=== PATIENT | female | born 1960 | race Caucasian/White ===

== ENCOUNTER 2017-03-14 17:46 | Emergency (ER) | payer MEDICARE, OTHER ==
[2017-03-14] MEDS ORDERED: SODIUM CHLORIDE 0.9% 500 ML IV STA (18:32)
[2017-03-14] MEDS ORDERED: IPRATROPIUM-ALBUTEROL 3 ML NEB INHALATION STA (18:32)
[2017-03-14] MEDS ORDERED: methylPREDNISolone SOD SUCCI 125 MG/2 ML VIAL IV STA (18:32)
--- NOTE | 2017-03-14 18:37 | ED ---
SOB HPI - General Chief Complaint: Shortness of Breath Stated Complaint: mateo Time Seen by Provider: 03/14/17 18:21 Source: patient, RN notes reviewed, old records reviewed Mode of arrival: ambulatory Limitations: no limitations - History of Present Illness Initial Comments: 56-year-old female chief complaint of increased shortness of breath and increasing cough over the past week. She does have a sense of history of COPD. She denies any specific chest pain at this time. She reports every time she coughs she brings up with the white sputum. Patient denies any recent fever or chills. She reports that she has coughed to the point where she has vomited earlier today. She states that she has been smoking a pack a day for many years. She reports she continues to smoke despite coughing. Patient denies any abdominal pain, changes in urination or bowel movements. - Related Data Home Medications Medication Instructions Recorded Confirmed Albuterol Inhaler [Ventolin Hfa 2 puff INHALATION RT-QID PRN 03/14/17 03/14/17 Inhaler] Albuterol Nebulized [Ventolin 2.5 mg INHALATION RT-DAILY PRN 03/14/17 03/14/17 Nebulized] Beclomethasone Dipropionate [Qvar 1 puff INHALATION RT-BID 03/14/17 03/14/17 80 mcg] Dextromethorphan Hb/Doxylamine 10 ml PO Q6HR PRN 03/14/17 03/14/17 [Robitussin Nighttime Cough Dm] Ibuprofen [Motrin] 800 mg PO DAILY PRN 03/14/17 03/14/17 Previous Rx's Medication Instructions Recorded Benzonatate [Tessalon Perles] 100 mg PO TID PRN #12 capsule 03/14/17 Levofloxacin [Levaquin] 750 mg PO DAILY #7 tab 03/14/17 predniSONE 50 mg PO DAILY #7 tablet 03/14/17 Allergies Allergy/AdvReac Type Severity Reaction Status Date / Time codeine AdvReac Nausea & Verified 03/14/17 19:23 Vomiting Review of Systems ROS Statement: Those systems with pertinent positive or pertinent negative responses have been documented in the HPI. ROS Other: All systems not noted in ROS Statement are negative. Past Medical History Past Medical History: COPD Additional Past Medical History / Comment(s): recurrent bronchitis, emphysema History of Any Multi-Drug Resistant Organisms: None Reported Past Surgical History: Cholecystectomy, Orthopedic Surgery, Tubal Ligation Additional Past Surgical History / Comment(s): l ankle Past Psychological History: No Psychological Hx Reported Smoking Status: Heavy tobacco smoker Past Alcohol Use History: None Reported Past Drug Use History: None Reported General Exam - General Exam Comments Initial Comments: This is a 56-year-old female. Patient appears in mild discomfort. Limitations: no limitations General appearance: alert, in no apparent distress Head exam: Present: atraumatic, normocephalic, normal inspection Eye exam: Present: normal appearance, PERRL, EOMI. Absent: scleral icterus, conjunctival injection, periorbital swelling ENT exam: Present: normal exam, mucous membranes moist Neck exam: Present: normal inspection. Absent: tenderness, meningismus, lymphadenopathy Respiratory exam: Present: normal lung sounds bilaterally, wheezes (Wheezing). Absent: respiratory distress, rales, rhonchi, stridor Cardiovascular Exam: Present: regular rate, normal rhythm, normal heart sounds. Absent: systolic murmur, diastolic murmur, rubs, gallop, clicks GI/Abdominal exam: Present: soft, normal bowel sounds. Absent: distended, tenderness, guarding, rebound, rigid Extremities exam: Present: normal inspection, full ROM, normal capillary refill. Absent: tenderness, pedal edema, joint swelling, calf tenderness Back exam: Present: normal inspection Neurological exam: Present: alert, oriented X3, CN II-XII intact Psychiatric exam: Present: normal affect, normal mood Skin exam: Present: warm, dry, intact, normal color. Absent: rash Course Vital Signs 03/14/17 03/14/17 03/14/17 17:58 18:33 18:51 Temperature 99.2 F 98.9 F Pulse Rate 104 H 101 H 90 Respiratory 20 18 Rate Blood Pressure 135/65 152/71 O2 Sat by Pulse 94 L 94 L Oximetry 03/14/17 19:04 Temperature Pulse Rate 93 Respiratory Rate Blood Pressure O2 Sat by Pulse Oximetry Medical Decision Making - Medical Decision Making 56-year-old female chief complaint of increased shortness of breath and increasing cough over the past week. She does have a sense of history of COPD. She denies any specific chest pain at this time. She reports every time she coughs she brings up with the white sputum. Patient denies any recent fever or chills. Patient's chest x-ray was reviewed and negative for any acute process. She did have a bruit DuoNeb breathing treatment and is reporting some improvement. Patient received IV Solu-Medrol for acute COPD exacerbation. All lab work was reviewed and negative for any significant acute process. Patient will be discharged with antibiotics and prednisone for the next week. Patient agrees to treatment plan will comply. Return parameters were discussed. - Lab Data Result diagrams: 03/14/17 18:42 03/14/17 18:42 Lab Results 03/14/17 03/14/17 03/14/17 Range/Units 18:42 18:42 18:42 WBC 11.1 H (3.8-10.6) k/uL RBC 4.76 (3.80-5.40) m/uL Hgb 15.4 (11.4-16.0) gm/dL Hct 44.3 (34.0-46.0) % MCV 93.0 (80.0-100.0) fL MCH 32.3 (25.0-35.0) pg MCHC 34.8 (31.0-37.0) g/dL RDW 13.0 (11.5-15.5) % Plt Count 346 (150-450) k/uL Neutrophils % 68 % Lymphocytes % 19 % Monocytes % 10 % Eosinophils % 1 % Basophils % 0 % Neutrophils # 7.5 (1.3-7.7) k/uL Lymphocytes # 2.1 (1.0-4.8) k/uL Monocytes # 1.1 H (0-1.0) k/uL Eosinophils # 0.2 (0-0.7) k/uL Basophils # 0.0 (0-0.2) k/uL PT (9.0-12.0) sec INR (<1.1) APTT (22.0-30.0) sec Sodium 142 (137-145) mmol/L Potassium 3.7 (3.5-5.1) mmol/L Chloride 108 H (98-107) mmol/L Carbon Dioxide 24 (22-30) mmol/L Anion Gap 10 mmol/L BUN 13 (7-17) mg/dL Creatinine 0.71 (0.52-1.04) mg/dL Est GFR (MDRD) Af Amer >60 (>60 ml/min/1.73 sqM) Est GFR (MDRD) Non-Af >60 (>60 ml/min/1.73 sqM) Glucose 104 H (74-99) mg/dL Calcium 9.3 (8.4-10.2) mg/dL Total Bilirubin 0.3 (0.2-1.3) mg/dL AST 23 (14-36) U/L ALT 28 (9-52) U/L Alkaline Phosphatase 111 (38-126) U/L Total Creatine Kinase 279 H (30-135) U/L CK-MB (CK-2) 2.3 (0.0-2.4) ng/mL CK-MB (CK-2) Rel Index 0.8 Troponin I <0.012 (0.000-0.034) ng/mL NT-Pro-B Natriuret Pep pg/mL Total Protein 7.2 (6.3-8.2) g/dL Albumin 4.1 (3.5-5.0) g/dL 03/14/17 03/14/17 Range/Units 18:42 18:42 WBC (3.8-10.6) k/uL RBC (3.80-5.40) m/uL Hgb (11.4-16.0) gm/dL Hct (34.0-46.0) % MCV (80.0-100.0) fL MCH (25.0-35.0) pg MCHC (31.0-37.0) g/dL RDW (11.5-15.5) % Plt Count (150-450) k/uL Neutrophils % % Lymphocytes % % Monocytes % % Eosinophils % % Basophils % % Neutrophils # (1.3-7.7) k/uL Lymphocytes # (1.0-4.8) k/uL Monocytes # (0-1.0) k/uL Eosinophils # (0-0.7) k/uL Basophils # (0-0.2) k/uL PT 10.7 (9.0-12.0) sec INR 1.1 (<1.1) APTT 21.4 L (22.0-30.0) sec Sodium (137-145) mmol/L Potassium (3.5-5.1) mmol/L Chloride (98-107) mmol/L Carbon Dioxide (22-30) mmol/L Anion Gap mmol/L BUN (7-17) mg/dL Creatinine (0.52-1.04) mg/dL Est GFR (MDRD) Af Amer (>60 ml/min/1.73 sqM) Est GFR (MDRD) Non-Af (>60 ml/min/1.73 sqM) Glucose (74-99) mg/dL Calcium (8.4-10.2) mg/dL Total Bilirubin (0.2-1.3) mg/dL AST (14-36) U/L ALT (9-52) U/L Alkaline Phosphatase (38-126) U/L Total Creatine Kinase (30-135) U/L CK-MB (CK-2) (0.0-2.4) ng/mL CK-MB (CK-2) Rel Index Troponin I (0.000-0.034) ng/mL NT-Pro-B Natriuret Pep 147 pg/mL Total Protein (6.3-8.2) g/dL Albumin (3.5-5.0) g/dL - Radiology Data Radiology results: report reviewed Chest x-ray was reviewed and negative for any acute process. Disposition Clinical Impression: COPD exacerbation Disposition: HOME SELF-CARE Condition: Good Instructions: Acute Bronchitis (ED), COPD (Chronic Obstructive Pulmonary Disease) (ED) Additional Instructions: Advised to rest, use inhalers, return if the emergency per minute if any alarming signs or symptoms occur. Denies follow-up with her primary care provider in the next 1-2 days. Prescriptions: Benzonatate [Tessalon Perles] 100 mg PO TID PRN #12 capsule PRN Reason: Cough Levofloxacin [Levaquin] 750 mg PO DAILY #7 tab predniSONE 50 mg PO DAILY #7 tablet Referrals: Jose Mata MD [Primary Care Provider] - 1-2 days Time of Disposition: 19:45
[2017-03-14 18:42] VITALS: RESP 18
[2017-03-14 19:00] LABS: Basophils % (A) 0 %; CH 31.2; CHCM 33.7; Eosinophils # (A) 0.2 k/uL (0-0.7); Eosinophils % (A) 1 %; HCT 44.3 % (34.0-46.0); HDW 2.41; HGB 15.4 gm/dL (11.4-16.0); Luc # (Auto) 0.23; Luc % (Auto) 2; Lymphocytes # (A) 2.1 k/uL (1.0-4.8); Lymphocytes % (A) 19 %; MCH 32.3 pg (25.0-35.0); MCHC 34.8 g/dL (31.0-37.0); Mean Platelet Volume 7.6; Monocytes # (A) 1.1 k/uL (0-1.0); Monocytes % (A) 10 %; Neutrophils # (A) 7.5 k/uL (1.3-7.7); Neutrophils % (A) 68 %; RBC 4.76 m/uL (3.80-5.40); WBC 11.1 k/uL (3.8-10.6); WBC (Perox) 10.31
[2017-03-14 19:09] LABS: INR 1.1 (<1.1); Prothrombin Time 10.7 sec (9.0-12.0)
[2017-03-14 19:15] LABS: ALT 28 U/L (9-52); AST 23 U/L (14-36); Alkaline Phosphatase 111 U/L (38-126); Anion Gap 10 mmol/L; Blood Urea Nitrogen 13 mg/dL (7-17); Calcium 9.3 mg/dL (8.4-10.2); Carbon Dioxide 24 mmol/L (22-30); Chloride 108 mmol/L (98-107); Glucose 104 mg/dL (74-99); Non-African American GFR(MDRD) >60 (>60 ml/min/1.73 sqM); Potassium 3.7 mmol/L (3.5-5.1); Sodium 142 mmol/L (137-145); Total Bilirubin 0.3 mg/dL (0.2-1.3); Total Protein 7.2 g/dL (6.3-8.2)
[2017-03-14 19:17] LABS: Partial Thromboplastin Time 21.4 sec (22.0-30.0)
[2017-03-14 19:23] LABS: Creatine Kinase 279 U/L (30-135)
--- NOTE | 2017-03-14 19:30 | XR ---
EXAMINATION TYPE: XR chest 2V DATE OF EXAM: 03/14/2017 COMPARISON: 02/04/2011 HISTORY: Shortness of breath TECHNIQUE: Frontal and lateral views of the chest are obtained. FINDINGS: Scattered senescent parenchymal changes noted. Hyperinflation compatible with COPD. No evidence for infiltrate. No evidence for atelectasis. Heart size is stable. Mediastinal structures are stable and grossly unremarkable. No evidence for hilar prominence. Degenerative changes dorsal spine. IMPRESSION: 1. No evidence for acute pulmonary disease.
[2017-03-14 19:35] LABS: Creatine Kinase MB 2.3 ng/mL (0.0-2.4); Troponin I <0.012 ng/mL (0.000-0.034)
[2017-03-14 20:05] VITALS: BP 140/67; PULSE 85; TEMP 97.8
== END 2017-03-14 20:04 | disposition home or self-care (01) ==
LOC: EC 17:46
DX: J44.1 Chronic obstructive pulmonary disease with (acute) exacerbation (principal); J43.9 Emphysema, unspecified; F17.200 Nicotine dependence, unspecified, uncomplicated; Z79.899 Other long term (current) drug therapy; Z79.51 Long term (current) use of inhaled steroids; Z88.5 Allergy status to narcotic agent
CPT/HCPCS: 99285; 96374; 96361; 36415; 94640; 83880; 80053; 82550; 82553; 84484; 85025; 85610; 85730; 71020; J2930; 96375

== ENCOUNTER → 2020-07-01 | Outpatient (CLI) | payer MEDICARE, OTHER ==
--- NOTE | 2020-07-01 10:39 | CTL ---
EXAMINATION TYPE: CT Low Dose Lung DATE OF EXAM ORDERED: 07/01/2020 HISTORY: 59-year-old female history of tobacco use. Lung cancer screening CT DLP: [address] CTDI: 3.8 mGy Automated exposure control for dose reduction was used. SCREENING VISIT: Baseline COMPARISON: Radiograph 03/14/2017 TECHNIQUE: Low dose computed tomography scan was performed through the chest. Coronal and sagittal re constructions performed. Additional coronal MIP reconstructions generated. CT DIAGNOSTIC QUALITY: Satisfactory FINDINGS: Large focal area of density in the central right breast, partially visualized may relate to prominent fibroglandular tissue and should be correlated with patient's mammography. Heart upper limits of normal in size without pericardial effusion. Borderline ectatic ascending aorta 3.5 cm. Mild scattered atherosclerotic arch calcifications and con ventional arch vessel branching anatomy. No thoracic lymphadenopathy by CT size criteria. Lymph nodes measure up to 6 mm in the lower right pa ratracheal region. Mild diffuse bronchial wall thickening. Minimal emphysematous change. 3 mm anterior right midlung pulmonary nodule, axial image 150. 4 mm subpleural calcified granuloma posterior right midlung, axial image 156. 3 mm pulmonary nodule medial right lower lobe, axial image 172. 4 mm benign calcified granuloma medial right mid to lower lung, axial image 174. 4 mm posterior right basilar pulmonary nodule, axial image 235. Some strandy areas of atelectasis or scarring in the bilateral lower lungs. No consolidation or pleur al effusion. Cholecystectomy clips in the upper abdomen. Mild diffuse thickening of the left adrenal gland without discrete nodularity. Small spleen. Bones: Anterior endplate spondylosis mid to lower thoracic spine. No osseous destructive process. Deg enerative changes especially at the left. IMPRESSION: 1. LungRADS 2 - benign; 4 mm and smaller pulmonary nodules at baseline, some of which represent benig n calcified granulomas. 2. COPD with minimal emphysema. 3. Large focal area of density in the central right breast partially visualized. This may represent p rominent fibroglandular tissue. RECOMMENDATION: 1. Continue annual low-dose lung cancer screening CT. 2. Correlate with any recent screening mammograms to exclude abnormality within the right breast. If no recent mammogram, recommend diagnostic mammographic evaluation. 3. Smoking cessation. FOLLOW UP CT CHEST RECOMMENDATION: [address] LUNG RAD: Lung-Rad 2 Benign Appearance or Behavior
== END | disposition home or self-care (01) ==
LOC: RADCTMAIN 08:09
PROVIDERS: ATTEND Family Medicine
DX: Z12.2 Encounter for screening for malignant neoplasm of respiratory organs (principal); J43.9 Emphysema, unspecified; R91.8 Other nonspecific abnormal finding of lung field; Z87.891 Personal history of nicotine dependence

== ENCOUNTER → 2020-07-09 | Outpatient (CLI) | payer MEDICARE, OTHER ==
--- NOTE | 2020-07-09 09:07 | MM ---
Reason for exam: additional evaluation requested from prior study. Last mammogram was performed 5 years and 7 months ago. History: Patient is postmenopausal. Took hormonal contraceptives for 4 years. Physical Findings: Nurse did not find any significant physical abnormalities on exam. MG 3D Diag Mammo W/Cad MACARIO Bilateral CC, MLO, and XCCL view(s) were taken. Prior study comparison: December 17, 2014, bilateral MG screening mammo w CAD. The breast tissue is heterogeneously dense. This may lower the sensitivity of mammography. There is no discrete abnormality including area of concern anterior right breast. No significant new findings when compared with previous films. These results were verbally communicated with the patient and result sheet given to the patient on 07/09/20. ASSESSMENT: Benign, BI-RAD 2 RECOMMENDATION: Routine screening mammogram of both breasts in 1 year.
== END | disposition home or self-care (01) ==
LOC: RADMAMWWP 06:55
PROVIDERS: ATTEND Family Medicine
DX: N63.10 Unspecified lump in the right breast, unspecified quadrant (principal)
CPT/HCPCS: 77066; G0279; 77062

== ENCOUNTER → 2021-03-30 | Outpatient (CLI) | payer MEDICARE, OTHER | END | disposition home or self-care (01) | LOC: LABWHC1 14:45 | PROVIDERS: ATTEND Family Medicine | DX: Z20.822 Contact with and (suspected) exposure to COVID-19 (principal); R06.00 Dyspnea, unspecified | CPT/HCPCS: U0003; C9803; U0005 ==

== ENCOUNTER → 2021-07-26 | Outpatient (CLI) | payer MEDICARE, OTHER ==
--- NOTE | 2021-07-26 09:52 | CTL ---
EXAMINATION TYPE: CT Low Dose Lung DATE OF EXAM ORDERED: 07/26/2021 HISTORY: Long-term tobacco use. Lung cancer screening CT DLP: 125.[address] CTDI: 4.00 mGy Automated exposure control for dose reduction was used. SCREENING VISIT: First after baseline COMPARISON: Prior low-dose lung screening CT July 01, 2020 TECHNIQUE: Low dose computed tomography scan was performed through the chest at 1 mm thick sections a nd reconstructed images in multiple planes at 1 mm and [address] DIAGNOSTIC QUALITY: Satisfactory FINDINGS: LUNG NODULES: Present, detailed below: Scattered small nodules redemonstrated. For reference there is stable 3 mm medial right mid lung nodule axial image 106 corresponding to prio r study image 172. Stable 4 mm medial right long subpleural calcified nodule or granuloma axial image 148 corresponding to prior study image 156. No new or enlarging greater than 5 mm noncalcified pulmonary nodules. LUNGS: COPD: Severity: Mild Fibrosis: Severity: Mild bibasilar Lymph nodes: No new greater than 1 cm Other findings: None RIGHT PLEURAL SPACE: Effusion: None Calcification: None Thickening: None Pneumothorax: None LEFT PLEURAL SPACE: Effusion: None Calcification: None Thickening: None Pneumothorax: None HEART: Heart Size: Stable upper limits of normal Coronary calcification: None Pericardial effusion: None OTHER FINDINGS: Upper abdomen: Small spleen redemonstrated. Visualized liver low dense suggesting fatty infiltration. Bony thorax: Moderate multilevel anterior and lateral spurring. Slight scoliotic curvature redemonstr ated. Supraclavicular region: None Other: None IMPRESSION: Stable small nodules. No new or enlarging greater than [address] LUNG RAD AND CT CHEST RECOMMENDATION: Lung-Rad 2 Benign Appearance or Behavior: Continue annual sc reening with LDCT in 12 months. S Modifier (other clinically significant findings): None
== END | disposition home or self-care (01) ==
LOC: RADCTMAIN 08:46
PROVIDERS: ATTEND Family Medicine
DX: Z12.2 Encounter for screening for malignant neoplasm of respiratory organs (principal); R91.8 Other nonspecific abnormal finding of lung field; Z87.891 Personal history of nicotine dependence
CPT/HCPCS: 71271

== ENCOUNTER → 2021-09-19 | Outpatient (CLI) | payer MEDICARE, OTHER ==
--- NOTE | 2021-09-19 09:39 | XR ---
EXAMINATION TYPE: XR Hip Complete RT DATE OF EXAM: 09/19/2021 COMPARISON: 06/06/2012 HISTORY: Pain chronic TECHNIQUE: Upright AP and frog leg views of the right hip were obtained. FINDINGS: Femoral head spurring is present. There is loss of the joint space. Acetabular spurring is present. No acute fracture or dislocation is evident. IMPRESSION: 1. Moderate degenerative changes right hip. Findings slightly progressive from comparison 2012
== END | disposition home or self-care (01) ==
LOC: RADXRMAIN 09:04
PROVIDERS: ATTEND Family Medicine
DX: M16.11 Unilateral primary osteoarthritis, right hip (principal)
CPT/HCPCS: 73502

== ENCOUNTER 2022-04-21 19:20 | Emergency (ER) | payer MEDICARE, OTHER ==
[2022-04-21 19:38] VITALS: RESP 16
--- NOTE | 2022-04-21 20:28 | XR ---
EXAMINATION TYPE: XR Hip RT and AP Pelvis DATE OF EXAM: 04/21/2022 COMPARISON: 06/06/2012 HISTORY: Pain TECHNIQUE: 3 views FINDINGS: The pelvic ring is intact. The proximal right femur is intact with no sign of a fracture. T here is hypertrophic acetabular spurring. There is spurring on the femoral head. There is minimal rig ht hip joint space narrowing sacroiliac joints are intact. IMPRESSION: There is hypertrophic osteoarthritis in the right hip joint more than the left. There is some progression compared to old exam. No fracture
--- NOTE | 2022-04-21 20:29 | XR ---
EXAMINATION TYPE: XR knee complete RT DATE OF EXAM: 04/21/2022 COMPARISON: NONE HISTORY: Knee pain TECHNIQUE: 3 views FINDINGS: There is some spurring on the patella. There is mild spurring at the tibial tubercle. I see no fracture nor dislocation. There is no sign of joint effusion. IMPRESSION: No acute abnormality of the right knee. Mild spurring as above. No significant joint spac e narrowing.
[2022-04-21] MEDS ORDERED: KETOROLAC 15 MG/ML 1 ML VIAL IM STA (21:13)
--- NOTE | 2022-04-21 21:23 | ED ---
Lower Extremity Injury HPI - General Chief Complaint: Extremity Injury, Lower Stated Complaint: Fall, RT hip and leg pain Time Seen by Provider: 04/21/22 19:41 Source: patient Mode of arrival: wheelchair Limitations: physical limitation - History of Present Illness Initial Comments: Patient is a 7-year-old female presenting with chief complaint of right-sided knee and hip pain. Patient states she tripped while walking up the stairs. Patient has known arthritis of the right hip, states that her baseline pain is worsened. It is also complaining of discomfort in the right knee. She has full range of motion, no numbness, tingling, weakness. No redness or swelling. No bruising or deformity. Patient is able to ambulate and bear weight without di fficulty. - Related Data Home Medications Medication Instructions Recorded Confirmed Albuterol Inhaler [Ventolin Hfa 2 puff INHALATION RT-QID PRN 03/14/17 03/14/17 Inhaler] Albuterol Nebulized [Ventolin 2.5 mg INHALATION RT-DAILY PRN 03/14/17 03/14/17 Nebulized] Beclomethasone Dipropionate [Qvar 1 puff INHALATION RT-BID 03/14/17 03/14/17 80 mcg] Dextromethorphan Hb/Doxylamine 10 ml PO Q6HR PRN 03/14/17 03/14/17 [Robitussin Nighttime Cough Dm] Ibuprofen [Motrin] 800 mg PO DAILY PRN 03/14/17 03/14/17 Previous Rx's Medication Instructions Recorded Benzonatate [Tessalon Perles] 100 mg PO TID PRN #12 capsule 03/14/17 Levofloxacin [Levaquin] 750 mg PO DAILY #7 tab 03/14/17 predniSONE 50 mg PO DAILY #7 tablet 03/14/17 Allergies Allergy/AdvReac Type Severity Reaction Status Date / Time codeine AdvReac Nausea & Verified 04/21/22 19:35 Vomiting Review of Systems ROS Statement: Those systems with pertinent positive or pertinent negative responses have been documented in the HPI. ROS Other: All systems not noted in ROS Statement are negative. Past Medical History Past Medical History: COPD, GERD/Reflux, Hyperlipidemia Additional Past Medical History / Comment(s): recurrent bronchitis, emphysema History of Any Multi-Drug Resistant Organisms: None Reported Past Surgical History: Cholecystectomy, Orthopedic Surgery, Tubal Ligation Additional Past Surgical History / Comment(s): l ankle Past Psychological History: No Psychological Hx Reported Smoking Status: Former smoker Past Alcohol Use History: None Reported Past Drug Use History: None Reported General Exam Limitations: no limitations General appearance: alert, in no apparent distress Head exam: Present: atraumatic, normocephalic, normal inspection Eye exam: Present: normal appearance, EOMI. Absent: scleral icterus, periorbital swelling Neck exam: Present: normal inspection Right Hip exam: Present: normal inspection, full ROM, tenderness Knee exam: Present: normal inspection, full ROM. Absent: tenderness, swelling Neurological exam: Present: alert, oriented X3, CN II-XII intact Psychiatric exam: Present: normal affect, normal mood Skin exam: Present: warm, dry, intact, normal color. Absent: rash Course Vital Signs 04/21/22 04/21/22 19:35 21:33 Temperature 98 F 97.8 F Pulse Rate 79 88 Respiratory 16 16 Rate Blood Pressure 140/76 168/68 O2 Sat by Pulse 95 95 Oximetry Medical Decision Making - Medical Decision Making Patient is a 61-year-old female presenting for evaluation of right-sided hip and knee pain. Patient has known osteoarthritis of the right hip. Patient tripped walking up the stairs today. She has full range of motion, and is able to bear weight and ambulate. Examination is WNL. X-ray shows no acute fracture or dislocation. Patient is educated on supportive treatment.Follow-up with PCP. Report back to ER with any new or worsening symptoms. Discussed return parameters and answered all questions. Patient conveyed verbal understanding and agreed to the plan. I discussed this case with my attending Dr. Romero. Disposition Clinical Impression: Knee strain, Hip pain Disposition: HOME SELF-CARE Condition: Good Instructions (If sedation given, give patient instructions): Knee Pain (ED), Hip Pain (ED) Additional Instructions: Follow-up with PCP on Sunday. Report back to ER with any new or worsening symptoms. Take Motrin and Tylenol as needed for pain control. Rest, ice, elevate the affected extremity. A supportive knee brace may be helpful. Is patient prescribed a controlled substance at d/c from ED?: No Referrals: Yoan Ibarra DO [Primary Care Provider] - 1-2 days Time of Disposition: 21:23
[2022-04-21 21:34] VITALS: BP 168/68; PULSE 88; TEMP 97.8
== END 2022-04-21 21:34 | disposition home or self-care (01) ==
LOC: EC 19:20
DX: S83.91XA Sprain of unspecified site of right knee, initial encounter (principal); J44.9 Chronic obstructive pulmonary disease, unspecified; E78.5 Hyperlipidemia, unspecified; Z87.891 Personal history of nicotine dependence; Z88.6 Allergy status to analgesic agent; W01.0XXA Fall on same level from slipping, tripping and stumbling without subsequent striking against object, initial encounter
CPT/HCPCS: 73502; 73562; 99284; 96372; J1885

== ENCOUNTER → 2022-08-04 | Outpatient (CLI) | payer MEDICARE, OTHER ==
--- NOTE | 2022-08-04 13:32 | CTL ---
EXAMINATION TYPE: CT Low Dose Lung DATE OF EXAM ORDERED: 08/04/2022 HISTORY:. Lung cancer screening CT DLP: 132.[address] CTDI: 3.9 mGy Automated exposure control for dose reduction was used. COMPARISON: 07/26/2021 TECHNIQUE: Low dose computed tomography scan was performed through the chest at 1 mm thick sections a nd reconstructed images in multiple planes at 1 mm and [address] DIAGNOSTIC QUALITY: Satisfactory FINDINGS: The 2 previously described nodules are not identified on the current study. There is a 4.3 mm subsoli d nodule in the right middle lobe. There is mild COPD. There is no interstitial or consolidative density. There is no pleural effusion, pleural thickening or pneumothorax. The great vessels the chest are normal and there is no mediastinal, hilar or axillary adenopathy. Limited scanning through the upper abdomen reveals no gross abnormality. IMPRESSION: 1. New 4.2 mm subsolid nodule in the right middle lobe. No other suspicious nodules seen. 2. Lung RADS category 3 probably benign. Follow-up CT in 6 months is recommended to confirm stability . 3. Mild COPD. 4. No acute cardiopulmonary disease.
== END | disposition home or self-care (01) ==
LOC: RADCTMAIN 10:53
PROVIDERS: ATTEND Family Medicine
DX: Z12.2 Encounter for screening for malignant neoplasm of respiratory organs (principal); J44.9 Chronic obstructive pulmonary disease, unspecified; R91.1 Solitary pulmonary nodule; Z87.891 Personal history of nicotine dependence
CPT/HCPCS: 71271

== ENCOUNTER → 2023-02-28 | Outpatient (CLI) | payer MEDICARE, OTHER ==
--- NOTE | 2023-02-28 21:19 | CTL ---
EXAMINATION TYPE: CT Low Dose Lung DATE OF EXAM ORDERED: 02/28/2023 HISTORY: [facility] tobacco use. Lung cancer screening CT DLP: 92.[address] CTDI: 2.6 mGy Automated exposure control for dose reduction was used. SCREENING VISIT: Third after baseline. COMPARISON: Prior 08/04/2022 and older studies. TECHNIQUE: Low dose computed tomography scan was performed through the chest at 1 mm thick sections a nd reconstructed images in multiple planes at 1 mm and [address] DIAGNOSTIC QUALITY: Satisfactory FINDINGS: LUNG NODULES: Present, detailed below: Scattered small nodules redemonstrated. For reference there is stable 3 mm medial right mid lung nodule axial image 154 corresponding to prio r studies. Stable 3-4 mm medial right long subpleural calcified nodule or granuloma axial image 135 correspondin g to prior studies. There is new 4 x 2 mm DAVID nodule axial image 28. No new or enlarging greater than 5 mm noncalcified pulmonary nodules. LUNGS: COPD: Severity: Mild Fibrosis: Severity: Mild bibasilar Lymph nodes: No new greater than 1 cm Other findings: None RIGHT PLEURAL SPACE: Effusion: None Calcification: None Thickening: None Pneumothorax: None LEFT PLEURAL SPACE: Effusion: None Calcification: None Thickening: None Pneumothorax: None HEART: Heart Size: Stable upper limits of normal Coronary calcification: None Pericardial effusion: None OTHER FINDINGS: Upper abdomen: Small spleen redemonstrated. Visualized liver low dense suggesting fatty infiltration. Cholecystectomy clips are redemonstrated. Bony thorax: Moderate multilevel anterior and lateral spurring. Slight scoliotic curvature redemonstr ated. Supraclavicular region: None Other: None IMPRESSION: Stable small nodules. New 4 x 2 mm DAVID nodule. No new or enlarging greater than [address] LUNG RAD AND CT CHEST RECOMMENDATION: Lung-Rad 2 Benign Appearance or Behavior: Continue annual sc reening with LDCT in 12 months. S Modifier (other clinically significant findings): None
== END | disposition home or self-care (01) ==
LOC: RADCTMAIN 15:34
PROVIDERS: ATTEND Family Medicine
DX: Z12.2 Encounter for screening for malignant neoplasm of respiratory organs (principal); R91.8 Other nonspecific abnormal finding of lung field; Z87.891 Personal history of nicotine dependence
CPT/HCPCS: 71271

== ENCOUNTER 2023-06-28 06:14 | Emergency (ER) | payer MEDICARE ==
[2023-06-28] MEDS ORDERED: ONDANSETRON 4 MG/2 ML VIAL IVP STA ×2 (06:33→10:10)
[2023-06-28] MEDS ORDERED: SODIUM CHLORIDE 0.9% 1,000 ML IV STA (06:33)
[2023-06-28] MEDS ORDERED: MORPHINE SULFATE 4 MG/ML SYRINGE IVP STA (06:33)
--- NOTE | 2023-06-28 06:35 | ED ---
Abdominal Pain HPI - General Chief Complaint: Abdominal Pain Stated Complaint: Vomiting, Abdominal Pain Time Seen by Provider: 06/28/23 06:26 Source: patient Mode of arrival: ambulatory Limitations: no limitations - History of Present Illness Initial Comments: He patient is a 63-year-old female with a history of hyperlipidemia and COPD who presents emergency room with complaints of bilateral lower abdominal pain nausea vomiting that started yesterday. Patient states that it is progressively worsened over the night. Patient denies any dysuria, hematuria or urinary frequency. She denies any constipation or diarrhea. Denies any fevers. Patient denies any history of colitis or diverticulitis. - Related Data Home Medications Medication Instructions Recorded Confirmed Albuterol Inhaler [Ventolin Hfa 2 puff INHALATION RT-QID PRN 03/14/17 03/14/17 Inhaler] Ibuprofen [Motrin] 800 mg PO DAILY PRN 03/14/17 03/14/17 Cetirizine HCl [Zyrtec] 10 mg PO DAILY 06/28/23 06/28/23 Cyclobenzaprine [Flexeril] 10 mg PO HS 06/28/23 06/28/23 Famotidine [Pepcid] 20 mg PO DAILY 06/28/23 06/28/23 Fenofibrate 160 mg PO DAILY 06/28/23 06/28/23 Fluticasone Propion/Salmeterol 2 puff INHALATION RT-HS 06/28/23 06/28/23 [Fluticasone-Salmeterol 250-50] Furosemide [Lasix] 20 mg PO DAILY PRN 06/28/23 06/28/23 Magnesium Oxide [Mag-Ox] 400 mg PO DAILY 06/28/23 06/28/23 Previous Rx's Medication Instructions Recorded Cephalexin [Keflex] 500 mg PO Q6HR 10 Days #40 cap 06/28/23 Ketorolac [Toradol] 10 mg PO Q8HR #15 tab 06/28/23 Ondansetron Odt [Zofran Odt] 4 mg PO Q8HR PRN #20 tab 06/28/23 oxyCODONE HCL/ACETAMINOPHEN 1 tab PO Q4HR PRN 3 Days #18 tab 06/28/23 [Percocet 5-325 mg] Allergies Allergy/AdvReac Type Severity Reaction Status Date / Time codeine AdvReac Nausea & Verified 06/28/23 10:07 Vomiting Review of Systems ROS Statement: Those systems with pertinent positive or pertinent negative responses have been documented in the HPI. ROS Other: All systems not noted in ROS Statement are negative. Past Medical History Past Medical History: COPD, GERD/Reflux, Hyperlipidemia Additional Past Medical History / Comment(s): recurrent bronchitis, emphysema History of Any Multi-Drug Resistant Organisms: None Reported Past Surgical History: Cholecystectomy, Orthopedic Surgery, Tubal Ligation Additional Past Surgical History / Comment(s): l ankle Past Psychological History: No Psychological Hx Reported Smoking Status: Former smoker Past Alcohol Use History: None Reported Past Drug Use History: None Reported General Exam Limitations: no limitations General appearance: alert, in no apparent distress Head exam: Present: atraumatic ENT exam: Present: normal exam Neck exam: Present: normal inspection Respiratory exam: Present: normal lung sounds bilaterally Cardiovascular Exam: Present: regular rate, normal rhythm GI/Abdominal exam: Present: soft, tenderness (b/l lower abdominal and per iumbical pain, no rebound tenderness, no guarding.) Extremities exam: Present: full ROM Back exam: Present: full ROM Neurological exam: Present: alert, oriented X3, CN II-XII intact Psychiatric exam: Present: normal affect, normal mood Skin exam: Present: warm, dry Course Vital Signs 06/28/23 06/28/23 06/28/23 06:18 06:48 08:24 Temperature 98.4 F 97.8 F Pulse Rate 61 60 65 Respiratory 18 18 18 Rate Blood Pressure 139/70 122/78 124/72 O2 Sat by Pulse 91 L 94 L 94 L Oximetry - Reevaluation(s) Reevaluation #1: 06/28/23 10:09 Patient was then better after IV fluids, Zofran and pain medication in the emergency room. The CT shows an obstructing 3 mm kidney stone at the left UPJ. I discussed treatment plan including pain medication and antibiotics for UTI and Medical Decision Making - Medical Decision Making Was pt. sent in by a medical professional or institution (, PA, WAVE SOLDERING MACHINE OPERATOR, urgent care, hospital, or shelter...) When possible be specific @ -[No] Did you speak to anyone other than the patient for history (EMS, parent, family, police, friend...)? What history was obtained from this source @ -[No] Did you review nursing and triage notes (agree or disagree)? Why? @ -[I reviewed and agree with nursing and triage notes] Were old charts reviewed (outside hosp., previous admission, EMS record, old EKG, old radiological studies, urgent care reports/EKG's, shelter records)? Report findings @ -Yes old charts were reviewed. Differential Diagnosis (chest pain, altered mental status, abdominal pain women, abdominal pain men, vaginal bleeding, weakness, fever, dyspnea, syncope, headache, dizziness, GI bleed, back pain, seizure, CVA, palpatations, mental health, musculoskeletal)? @ -Abdominal pain, colitis, diverticulitis, kidney stone, kidney infection, UTI, gastroenteritis EKG interpreted by me (3pts min.). @ -[As above] X-rays interpreted by me (1pt min.). @ -[None done] CT interpreted by me (1pt min.). @ -CT is negative for any obvious mass or bowel obstruction however there is a suspected 3 mm stone at the left UVJ with hydronephrosis. Radiology report pending for confirmation of acute changes U/S interpreted by me (1pt. min.). @ -[None done] What testing was considered but not performed or refused? (CT, X-rays, U/S, labs)? Why? @ -[None] What meds were considered but not given or refused? Why? @ -[None] Did you discuss the management of the patient with other professionals (professionals i.e. , PA, WAVE SOLDERING MACHINE OPERATOR, lab, RT, psych nurse, social media strategist, swim coach, teacher, chief procurement officer, case assistant)? Give summary @ -I discussed patient's symptoms are And disposition with attending ED physician Dr. Renee today. Was smoking cessation discussed for >3mins.? @ -[No] Was critical care preformed (if so, how long)? @ -[No] Were there social determinants of health that impacted care today? How? (Homelessness, low income, unemployed, alcoholism, drug addiction, transportation, low edu. Level, literacy, decrease access to med. care, intermediate, rehab)? @ -[No] Was there de-escalation of care discussed even if they declined (Discuss DNR or withdrawal of care, Hospice)? DNR status @ -[No] What co-morbidities impacted this encounter? (DM, HTN, Smoking, COPD, CAD, Cancer, CVA, ARF, Chemo, Hep., AIDS, mental health diagnosis, sleep apnea, morbid obesity)? @ -[None] Was patient admitted / discharged? Hospital course, mention meds given and route, prescriptions, significant lab abnormalities, going to OR and other pertinent info. @ -Patient is a 3 mm obstructing kidney stone at the left UVJ that should pass on its own. She is stable at this time and is feeling better patient and nausea medicine. Patient is stable to follow up as an outpatient with outpatient urology referral. I discussed signs return to the emergency room with the patient. She understands reasons to treatment and discharge plan. We'll continue pain medicine and nausea medicine and antibiotics and antiemetics. Undiagnosed new problem with uncertain prognosis? @ -[No] Drug Therapy requiring intensive monitoring for toxicity (Heparin, Nitro, Insulin, Cardizem)? @ -[No] Were any procedures done? @ -[No] Diagnosis/symptom? @ -Left ureterolithiasis Acute, or Chronic, or Acute on Chronic? @ -AcUte Uncomplicated (without systemic symptoms) or Complicated (systemic symptoms)? @ -Uncomplicated Side effects of treatment? @ -[No] Exacerbation, Progression, or Severe Exacerbation? @ -[No] Poses a threat to life or bodily function? How? (Chest pain, USA, PA, pneumonia, PE, COPD, DKA, ARF, appy, cholecystitis, CVA, Diverticulitis, Homicidal, Suicidal, threat to staff... and all critical care pts) @ -[No] - Lab Data Result diagrams: 06/28/23 07:02 06/28/23 07:02 Lab Results 06/28/23 06/28/23 Range/Units 07:02 07:02 WBC 15.6 H (3.8-10.6) k/uL RBC 5.01 (3.80-5.40) m/uL Hgb 15.9 (11.4-16.0) gm/dL Hct 47.8 H (34.0-46.0) % MCV 95.3 (80.0-100.0) fL MCH 31.8 (25.0-35.0) pg MCHC 33.3 (31.0-37.0) g/dL RDW 12.8 (11.5-15.5) % Plt Count 426 (150-450) k/uL MPV 7.8 Neutrophils % 84 % Lymphocytes % 9 % Monocytes % 5 % Eosinophils % 1 % Basophils % 0 % Neutrophils # 13.1 H (1.3-7.7) k/uL Lymphocytes # 1.4 (1.0-4.8) k/uL Monocytes # 0.8 (0-1.0) k/uL Eosinophils # 0.1 (0-0.7) k/uL Basophils # 0.0 (0-0.2) k/uL Sodium 138 (137-145) mmol/L Potassium 3.6 (3.5-5.1) mmol/L Chloride 102 (98-107) mmol/L Carbon Dioxide 25 (22-30) mmol/L Anion Gap 11 mmol/L BUN 16 (7-17) mg/dL Creatinine 0.78 (0.52-1.04) mg/dL Est GFR (CKD-EPI)AfAm >90 (>60 ml/min/1.73 sqM) Est GFR (CKD-EPI)NonAf 83 (>60 ml/min/1.73 sqM) Glucose 161 H (74-99) mg/dL Calcium 9.5 (8.4-10.2) mg/dL Total Bilirubin 0.4 (0.2-1.3) mg/dL AST 30 (14-36) U/L ALT 23 (4-34) U/L Alkaline Phosphatase 121 (38-126) U/L Total Protein 7.3 (6.3-8.2) g/dL Albumin 4.2 (3.5-5.0) g/dL Lipase 51 (23-300) U/L - Radiology Data Radiology results: report reviewed, image reviewed Disposition Clinical Impression: Ureterolithiasis Disposition: HOME SELF-CARE Condition: Good Instructions (If sedation given, give patient instructions): Kidney Stones (ED) Is patient prescribed a controlled substance at d/c from ED?: Yes When asked, does pt state using other controlled substances?: No If prescribed controlled substance>3 days was MAPS reviewed?: Prescribed <3 Days If opioid is for acute pain is fill amount 7 days or less?: No Referrals: Yoan Ibarra DO [Primary Care Provider] - 1-2 days Mak Howard MD [STAFF PHYSICIAN] - 1-2 days Time of Disposition: 10:24
[2023-06-28 06:42] VITALS: RESP 18
[2023-06-28 07:02] VITALS: TEMP 97.8
[2023-06-28 07:11] LABS: Basophils % (A) 0 %; Eosinophils # (A) 0.1 k/uL (0-0.7); Eosinophils % (A) 1 %; HCT 47.8 % (34.0-46.0); HGB 15.9 gm/dL (11.4-16.0); Lymphocytes # (A) 1.4 k/uL (1.0-4.8); Lymphocytes % (A) 9 %; MCH 31.8 pg (25.0-35.0); MCHC 33.3 g/dL (31.0-37.0); MCV 95.3 fL (80.0-100.0); Mean Platelet Volume 7.8; Monocytes # (A) 0.8 k/uL (0-1.0); Monocytes % (A) 5 %; Neutrophils # (A) 13.1 k/uL (1.3-7.7); Neutrophils % (A) 84 %; Platelet Count 426 k/uL (150-450); RBC 5.01 m/uL (3.80-5.40); RDW 12.8 % (11.5-15.5); WBC 15.6 k/uL (3.8-10.6)
[2023-06-28 07:33] LABS: AST 30 U/L (14-36); African American GFR (CKD) >90 (>60 ml/min/1.73 sqM); Albumin 4.2 g/dL (3.5-5.0); Alkaline Phosphatase 121 U/L (38-126); Anion Gap 11 mmol/L; Blood Urea Nitrogen 16 mg/dL (7-17); Calcium 9.5 mg/dL (8.4-10.2); Carbon Dioxide 25 mmol/L (22-30); Chloride 102 mmol/L (98-107); Glucose 161 mg/dL (74-99); Lipase 51 U/L (23-300); Non-African American GFR(CKD) 83 (>60 ml/min/1.73 sqM); Potassium 3.6 mmol/L (3.5-5.1); Sodium 138 mmol/L (137-145); Total Bilirubin 0.4 mg/dL (0.2-1.3); Total Protein 7.3 g/dL (6.3-8.2)
--- NOTE | 2023-06-28 08:19 | CT ---
EXAMINATION TYPE: CT abdomen pelvis w con CT DLP: 1620.7 mGycm, Automated exposure control for dose reduction was used. DATE OF EXAM: 06/28/2023 8:08 AM COMPARISON: None CLINICAL INDICATION:Female, 62 years old with history of abdominal pain, N/V; generalized pain and vo miting TECHNIQUE: Standard CT of the abdomen and pelvis following the administration of 100 cc of Isovue 3 00 IV contrast material. Coronal and sagittal reformats were performed. FINDINGS: LOWER CHEST: Posterior dependent subsegmental atelectasis is noted. Cardiomegaly. No pericardial effu leopoldo. ABDOMEN LIVER: Diffusely hypoattenuating parenchyma. GALLBLADDER AND BILE DUCTS: The gallbladder is surgically absent. PANCREAS: Unremarkable. SPLEEN: Atrophic appearance of the spleen. ADRENAL GLANDS: Unremarkable. KIDNEYS AND URETERS: Mild to moderate contrast measured within the right collecting system on the del ayed phase. Left hydroureteronephrosis with an obstructive 3 mm calculus at the ureterovesical junct ion. Mild delayed enhancement of the left kidney compared to the right. Additional nonobstructive lef t lower pole 6 mm calculus. No contrast imaging within the left collecting system. PELVIS BLADDER: Unremarkable REPRODUCTIVE: Unremarkable. ABDOMEN & PELVIS STOMACH AND BOWEL: Stomach and duodenum are unremarkable. No focal wall thickening or surrounding inf lammatory changes. The appendix is within normal limits. No evidence of bowel obstruction. PERITONEUM: No evidence of pneumoperitoneum or free fluid. VASCULATURE: No evidence of aortic aneurysm. Few pelvic phleboliths. MUSCULOSKELETAL: No acute osseous abnormalities. Mild multilevel degenerative disc disease of the vis ualized thoracolumbar spine. Advanced osteoarthritic changes of the right hip. LYMPH NODES: No gross evidence for lymphadenopathy. SOFT TISSUE/ABDOMINAL WALL: Moderate size fat filled periumbilical hernia. IMPRESSION: 1. Mild to moderate left hydroureteronephrosis with an obstructive 3 mm calculus at the ureterovesic al junction. 2. Additional nonobstructive left renal calculus. 3. Moderate size fat filled periumbilical hernia. 4. Hepatic steatosis. 5. Atrophic spleen.
[2023-06-28 08:22] LABS: ALT 23 U/L (4-34)
[2023-06-28] MEDS ORDERED: cefTRIAXone IN SWFI 1,000 MG/10 ML SYRINGE IVP STA (08:39)
[2023-06-28] MEDS ORDERED: HYDROmorphone 0.5 MG/0.5 ML SYRINGE IVP STA (10:10)
[2023-06-28] MEDS ORDERED: KETOROLAC 15 MG/ML 1 ML VIAL IVP STA (10:10)
[2023-06-28 10:41] LABS: Mucus,Urine Rare /hpf; RBC,Urine 11 /hpf (0-5); Squamous Epithelial Cell,Urine 3 /hpf (0-4); WBC,Urine 1 /hpf (0-5)
[2023-06-28 10:44] LABS: Appearance,Urine Clear (Clear); Color,Urine Light Yellow; Glucose,Urine (UA) Trace (Negative); Ketones,Urine Negative (Negative); Protein,Urine Negative (Negative); Specific Gravity,Urine <1.005 (1.001-1.035)
[2023-06-28 10:45] LABS: Bilirubin,Urine Negative (Negative); Blood,Urine Small (Negative); Leukocyte Esterase,Urine Negative (Negative); Nitrite,Urine Negative (Negative); Urobilinogen,Urine <2.0 mg/dL (<2.0)
[2023-06-28 11:10] VITALS: BP 111/70; PULSE 78
== END 2023-06-28 10:51 | disposition home or self-care (01) ==
LOC: EC 06:14
DX: N13.2 Hydronephrosis with renal and ureteral calculous obstruction (principal); K21.9 Gastro-esophageal reflux disease without esophagitis; J43.9 Emphysema, unspecified; Z79.51 Long term (current) use of inhaled steroids; Z79.899 Other long term (current) drug therapy; Z88.5 Allergy status to narcotic agent; Z90.49 Acquired absence of other specified parts of digestive tract; Z87.891 Personal history of nicotine dependence
CPT/HCPCS: 36415; 80053; 83690; 85025; 81001; 74177; 99285; 96374; 96375 ×4; 96376; 96361; J2270; J2405; J0696; J1885; J1170; Q9967

== ENCOUNTER → 2023-07-27 | Outpatient (CLI) | payer MEDICARE ==
--- NOTE | 2023-07-27 08:54 | US ---
EXAMINATION TYPE: US arterial LE single level DATE OF EXAM: 07/27/2023 8:34 AM CLINICAL INDICATION: Female, 62 years old with history of I73.9 PERIPHERAL VASCULAR DISEASE, UNSPECIF IED; History of: Smoker: Former Hypertension: No Diabetic: No Hyperlipidemia: Yes TIA/CVA: No Previous Vascular Surgery: No CAD: No AK: No Vascular Ulcers: No Claudication: No Gangrene: No Doppler Waveforms: Right: Multiphasic Left: Multiphasic Right Brachial Pressure: 152 Left Brachial Pressure: 159 Ankle-Brachial Indices: Right: 1.09 Left: 1.12 Toe Brachial Indices: Right: 0.65 Left: 0.77 IMPRESSION: Ankle-brachial indices within normal limits bilaterally.
== END | disposition home or self-care (01) ==
LOC: RADUSWWP 07:59
PROVIDERS: ATTEND Podiatrist Foot & Ankle Surgery
DX: I73.9 Peripheral vascular disease, unspecified (principal)
CPT/HCPCS: 93922

== ENCOUNTER 2023-08-14 14:00 | Emergency (ER) | payer MEDICARE, OTHER ==
[2023-08-14 14:26] VITALS: BP 134/77; PULSE 82; RESP 16; TEMP 97.9
[2023-08-14 14:58] LABS: Basophils % (A) 0 %; Eosinophils # (A) 0.1 k/uL (0-0.7); Eosinophils % (A) 1 %; HCT 44.2 % (34.0-46.0); HGB 14.8 gm/dL (11.4-16.0); Lymphocytes # (A) 2.6 k/uL (1.0-4.8); Lymphocytes % (A) 29 %; MCH 31.9 pg (25.0-35.0); MCHC 33.4 g/dL (31.0-37.0); MCV 95.6 fL (80.0-100.0); Mean Platelet Volume 8.2; Monocytes # (A) 0.8 k/uL (0-1.0); Monocytes % (A) 9 %; Neutrophils # (A) 5.3 k/uL (1.3-7.7); Neutrophils % (A) 59 %; Platelet Count 304 k/uL (150-450); RBC 4.63 m/uL (3.80-5.40); RDW 12.8 % (11.5-15.5)
[2023-08-14 15:07] LABS: Partial Thromboplastin Time 22.5 sec (22.0-30.0); Prothrombin Time 10.5 sec (10.0-12.5)
[2023-08-14 15:12] LABS: ALT 23 U/L (4-34); AST 30 U/L (14-36); African American GFR (CKD) >90 (>60 ml/min/1.73 sqM); Albumin 3.9 g/dL (3.5-5.0); Alkaline Phosphatase 115 U/L (38-126); Anion Gap 10 mmol/L; Blood Urea Nitrogen 17 mg/dL (7-17); Calcium 9.6 mg/dL (8.4-10.2); Carbon Dioxide 27 mmol/L (22-30); Chloride 101 mmol/L (98-107); Glucose 100 mg/dL (74-99); Magnesium 2.3 mg/dL (1.6-2.3); Non-African American GFR(CKD) >90 (>60 ml/min/1.73 sqM); Sodium 138 mmol/L (137-145); Total Bilirubin 0.6 mg/dL (0.2-1.3); Total Protein 6.9 g/dL (6.3-8.2)
--- NOTE | 2023-08-14 15:25 | ED ---
Chest Pain HPI - General Chief Complaint: Chest Pain Stated Complaint: chest pain Time Seen by Provider: 08/14/23 14:22 Source: patient, EMS, RN notes reviewed Mode of arrival: EMS Limitations: no limitations - History of Present Illness Initial Comments: 62-year-old female presents emergency Department chief complaint right-sided rib, chest pain. Patient states started earlier today she states that she had no trauma states she was just sitting when it started she has no shortness of breath she's had prior cholecystectomy does admit that she has a history of hyperlipidemia denies any other prior cardiac disease. No fever cough or cold- like symptoms - Related Data Home Medications Medication Instructions Recorded Confirmed Albuterol Inhaler [Ventolin Hfa 2 puff INHALATION RT-QID PRN 03/14/17 08/14/23 Inhaler] Ibuprofen [Motrin] 800 mg PO TID PRN 03/14/17 08/14/23 Cetirizine HCl [Zyrtec] 10 mg PO DAILY 06/28/23 08/14/23 Cyclobenzaprine [Flexeril] 10 mg PO HS 06/28/23 08/14/23 Famotidine [Pepcid] 20 mg PO DAILY 06/28/23 08/14/23 Fenofibrate 160 mg PO DAILY 06/28/23 08/14/23 Fluticasone Propion/Salmeterol 2 puff INHALATION RT-HS 06/28/23 08/14/23 [Fluticasone-Salmeterol 250-50] Magnesium Oxide [Mag-Ox] 400 mg PO DAILY 06/28/23 08/14/23 Fluticasone Nasal [place] [Flonase 1 spray EA NOSTRIL HS 08/14/23 08/14/23 Nasal [place]] Ketorolac [Toradol] 10 mg PO Q8HR PRN 08/14/23 08/14/23 oxyCODONE HCL/ACETAMINOPHEN 1 tab PO Q4HR PRN 08/14/23 08/14/23 [Percocet 5-325 mg] Previous Rx's Medication Instructions Recorded Ondansetron Odt [Zofran Odt] 4 mg PO Q8HR PRN #20 tab 06/28/23 Allergies Allergy/AdvReac Type Severity Reaction Status Date / Time codeine AdvReac Nausea & Verified 08/14/23 16:11 Vomiting Review of Systems ROS Statement: Those systems with pertinent positive or pertinent negative responses have been documented in the HPI. ROS Other: All systems not noted in ROS Statement are negative. EKG Findings - EKG Comments: EKG Findings:: EKG performed at 14:37 sinus rhythm rate of 82 LA 166 QRS 85 QT/QTC 390/429 - EKG Results: EKG: interpreted by LARA Past Medical History Past Medical History: COPD, GERD/Reflux, Hyperlipidemia Additional Past Medical History / Comment(s): recurrent bronchitis, emphysema History of Any Multi-Drug Resistant Organisms: None Reported Past Surgical History: Cholecystectomy, Orthopedic Surgery, Tubal Ligation Additional Past Surgical History / Comment(s): l ankle Past Psychological History: No Psychological Hx Reported Smoking Status: Former smoker Past Alcohol Use History: None Reported Past Drug Use History: None Reported General Exam Limitations: no limitations General appearance: alert, in no apparent distress Head exam: Present: atraumatic, normocephalic, normal inspection Eye exam: Present: normal appearance, PERRL, EOMI. Absent: scleral icterus, conjunctival injection, periorbital swelling ENT exam: Present: normal exam, mucous membranes moist Neck exam: Present: normal inspection, full ROM. Absent: tenderness, meningismus, lymphadenopathy Respiratory exam: Present: normal lung sounds bilaterally, chest wall tenderness. Absent: respiratory distress, wheezes, rales, rhonchi, stridor Cardiovascular Exam: Present: regular rate, normal rhythm, normal heart sounds. Absent: systolic murmur, diastolic murmur, rubs, gallop, clicks GI/Abdominal exam: Present: soft, normal bowel sounds. Absent: distended, tenderness, guarding, rebound, rigid Course Vital Signs 08/14/23 14:03 Temperature 97.9 F Pulse Rate 82 Respiratory 16 Rate Blood Pressure 134/77 O2 Sat by Pulse 95 Oximetry Chest Pain MDM - MDM Was pt. sent in by a medical professional or institution (, PA, HEAD BONE GRINDER, urgent care, hospital, or residential...) When possible be specific @ -No Did you speak to anyone other than the patient for history (EMS, parent, family, police, friend...)? What history was obtained from this source @ -No Did you review nursing and triage notes (agree or disagree)? Why? @ -I reviewed and agree with nursing and triage notes Were old charts reviewed (outside hosp., previous admission, EMS record, old EKG, old radiological studies, urgent care reports/EKG's, residential records)? Report findings @ -No old charts were reviewed Differential Diagnosis (chest pain, altered mental status, abdominal pain women, abdominal pain men, vaginal bleeding, weakness, fever, dyspnea, syncope, headache, dizziness, GI bleed, back pain, seizure, CVA, palpatations, mental health, musculoskeletal)? @ -nDifferential Chest Pain: Stable Angina, Unstable Angina, STEMI, NSTEMI Aortic Dissection, Pneumothorax, Musculoskeletal, Esophageal Spasm GERD, Cholecystitis, Pancreatitis, Zoster, this is not meant to be an all-inclusive list. cable EKG interpreted by me (3pts min.). @ -As above X-rays interpreted by me (1pt min.). @ -Chest x-ray shows no acute process CT interpreted by me (1pt min.). @ -None done U/S interpreted by me (1pt. min.). @ -None done What testing was considered but not performed or refused? (CT, X-rays, U/S, labs)? Why? @ -None What meds were considered but not given or refused? Why? @ -None Did you discuss the management of the patient with other professionals (professionals i.e. , PA, HEAD BONE GRINDER, lab, RT, psych nurse, public health social worker, operation manager, teacher, commercial account officer, watch case polisher)? Give summary @ -No Was smoking cessation discussed for >3mins.? @ -No Was critical care preformed (if so, how long)? @ -No Were there social determinants of health that impacted care today? How? (Homelessness, low income, unemployed, alcoholism, drug addiction, transportation, low edu. Level, literacy, decrease access to med. care, senior care, rehab)? @ -No Was there de-escalation of care discussed even if they declined (Discuss DNR or withdrawal of care, Hospice)? DNR status @ -No What co-morbidities impacted this encounter? (DM, HTN, Smoking, COPD, CAD, Cancer, CVA, ARF, Chemo, Hep., AIDS, mental health diagnosis, sleep apnea, morbid obesity)? @ -None Was patient admitted / discharged? Hospital course, mention meds given and route, prescriptions, significant lab abnormalities, going to OR and other pertinent info. @ -[Discharge she states pain is resolved. Negative workup including labs, EKG and chest x-ray she was offered admission patient declined stating that she didn't like she has pulled a muscle. Patient was given strict return paramete rs. Undiagnosed new problem with uncertain prognosis? @ -No Drug Therapy requiring intensive monitoring for toxicity (Heparin, Nitro, Insulin, Cardizem)? @ -No Were any procedures done? @ -No Diagnosis/symptom? @ -Chest wall pain Acute, or Chronic, or Acute on Chronic? @ -Acute Uncomplicated (without systemic symptoms) or Complicated (systemic symptoms)? @ -Uncomplicated Side effects of treatment? @ -No Exacerbation, Progression, or Severe Exacerbation? @ -No Poses a threat to life or bodily function? How? (Chest pain, USA, [place], pneumonia, PE, COPD, DKA, ARF, appy, cholecystitis, CVA, Diverticulitis, Homicidal, Suicidal, threat to staff... and all critical care pts) @ -No Disposition Clinical Impression: Chest wall pain Disposition: HOME SELF-CARE Condition: Stable Instructions (If sedation given, give patient instructions): Chest Pain (ED), Costochondritis (ED) Additional Instructions: Please return to the Emergency Department if symptoms worsen or any other concerns. Is patient prescribed a controlled substance at d/c from ED?: No Referrals: Yoan Ibarra DO [Primary Care Provider] - 1-2 days Time of Disposition: 16:17
--- NOTE | 2023-08-14 15:25 | XR ---
EXAMINATION TYPE: XR chest 2V DATE OF EXAM: 08/14/2023 COMPARISON: 03/14/2017 INDICATION: Chest pain TECHNIQUE: Frontal and lateral views of the chest are obtained. FINDINGS: The heart size is normal. The pulmonary vasculature is normal. Platelike atelectasis at the right base.. IMPRESSION: 1. Mild platelike atelectasis right lung base.
[2023-08-14 15:38] LABS: Potassium 4.1 mmol/L (3.5-5.1)
== END 2023-08-14 16:38 | disposition home or self-care (01) ==
LOC: EC 14:00
DX: R07.89 Other chest pain (principal); J44.9 Chronic obstructive pulmonary disease, unspecified; K21.9 Gastro-esophageal reflux disease without esophagitis; Z79.51 Long term (current) use of inhaled steroids; Z87.891 Personal history of nicotine dependence; Z88.5 Allergy status to narcotic agent; Z90.49 Acquired absence of other specified parts of digestive tract; Z79.899 Other long term (current) drug therapy
CPT/HCPCS: 36415; 71046; 80053; 83735; 84484; 85025; 85610; 85730; 93005; 99285

== ENCOUNTER → 2023-10-12 | Outpatient (CLI) | payer MEDICARE, OTHER ==
--- NOTE | 2023-10-12 09:31 | CT ---
EXAMINATION TYPE: CT chest wo con CT DLP: 535.8 mGycm, Automated exposure control for dose reduction was used. DATE OF EXAM: 10/12/2023 8:28 AM COMPARISON: CT 02/28/2023 CLINICAL INDICATION:Female, 62 years old with history of R91.1 SOLITARY PULMONARY NODULE, pulmonary n odule TECHNIQUE: Multiple axial images were obtained through the chest. Sagittal and coronal reformats were created for review. Contrast used: mL of (None if empty) Oral contrast used: (None if empty) FINDINGS: LUNGS/ PLEURA: No focal consolidation, pneumothorax or pleural effusion. Resolution of prior left upp er lobe pulmonary nodule. AIRWAY: Patent and unremarkable. HEART: Heart is mildly enlarged for size. MEDIASTINUM: No gross evidence of adenopathy. VASCULATURE: No aortic aneurysm. MUSCULOSKELETAL: Moderate disc degeneration changes are present throughout the thoracolumbar spine. SOFT TISSUES/LYMPH NODES: Unremarkable. LOWER NECK: No significant findings. UPPER ABDOMEN: Low-attenuation to the liver parenchyma. The gallbladder appears surgically absent. IMPRESSION: 1. No new or enlarging pulmonary nodules. The left upper lobe pulmonary nodule seen on 02/20/2023 is no longer visualized. Yearly low-dose lung cancer screening recommended. 2. Mild emphysema. 3. Hepatic steatosis. Follow up recommendations for incidental pulmonary nodules, if there are any, are per [place] or [employer]. [email or web address].org/articles/rljuflccqa-ymifyiq-[email or web address]-[email or web address]?lang=us
== END | disposition home or self-care (01) ==
LOC: RADCTMAIN 08:04
PROVIDERS: ATTEND Internal Medicine Sleep Medicine
DX: K76.0 Fatty (change of) liver, not elsewhere classified (principal); J43.9 Emphysema, unspecified; R91.1 Solitary pulmonary nodule; Z90.49 Acquired absence of other specified parts of digestive tract
CPT/HCPCS: 71250